=== PATIENT | female | born 1960 | race Caucasian/White ===

== ENCOUNTER 2021-08-01 05:45 | Day surgery (SDC) | payer OTHER ==
[~2021-08-01] VITALS: Ht 162.6 cm; Wt 75.0 kg
[~2021-08-01 05:45] MED LIST: ACETAMINOPHEN500 MG PO; AMARYL2 MG PO; AMARYL4 MG PO; ASPIRIN EC325 MG PO; COZAAR50 MG PO; DICLOFENAC SODI75 MG PO; GABAPENTIN300 MG PO; JANUVIA100 MG PO; JARDIANCE25 MG PO; LANTUS100 UNITS/ SUB-Q; LOSARTAN POTAS100 MG PO; METFORMIN HCL500 MG PO; OMEPRAZOLE20 MG PO; OXYCODONE HCL5 MG PO; PRAVACHOL20 MG PO; STOOL SOFTENER1 EAC4 PO; TOUJEO SOL300 UNIT/1 SUB-Q; TRULICITY0.75 MG/0.; VITAMIN D50000 UNI1 PO; ZANTAC300 MG PO
--- NOTE | 2021-08-01 06:28 | NUR ---
BLOOD SUGAR 168 AT ADMIT
--- NOTE | 2021-08-01 07:54 | NUR ---
PT ALERT, ORIENTED AND SUPPORTED BY PRIYA. PT REQUESTS PRAYER, GAVE ENCOURAGEMENT AND SUPPORT. PRIYA WILL WAIT FOR DC. WILL FOLLOW NEEDED
[2021-08-01] MEDS ORDERED: OXYCODONE HCL5 MG PO (08:00)
[2021-08-01] MEDS ORDERED: KETOROLAC TROME10 MG PO (08:00)
--- NOTE | 2021-08-01 08:01 | NUR ---
08/01/21 0801 Lay Brooke 0758- PT ARRIVES PACU NONAROUSABLE TO STIMULI. RESP EVEN AND UNLABORED. OXYGEN SAT HIGH 90'S TO 100% ON 6L VIA MASK.
--- NOTE | 2021-08-01 09:44 | NUR ---
0900 PT COMPLAINS OF LT KNEE PAIN 5/10 REPORTS IT IS NOT TOLERABLE OXYCODONE GIVEN. 929 PT REPORTS NEEDING TO VOID, SHE IS STILL DROWSY, COMMOD BROUGHT INTO ROOM SHE WAS ABLE TO VOID 500ML OF CLEAR YELLOW URINE. PT REPORTS PAIN IS MUCH BETTER /10 NOW. HELPED HER BACK INTO BED GALO HUGGER AND WARM BLANKETS GIVEN, CALL LIGHT WITH IN REACH, IS AT BEDSIDE.
--- NOTE | 2021-08-01 10:41 | NUR ---
1020 PT REPORTS READINESS TO GO HOME. IV DC'D TIP IN TACT, DISCHARGE INSTRUCTIONS GIVEN TO PT AND BOTH VOICED UNDERSTANDING.
--- NOTE | 2021-08-02 10:25 | OR ---
[facility] [address] [facility] [place], [place] [address] Signed DATE OF OPERATION: 08/01/2021 SURGEON: Jean Claude Koenig MD PREOPERATIVE DIAGNOSIS: Heterotopic ossification, left total knee. POSTOPERATIVE DIAGNOSIS: Heterotopic ossification, left total knee. PROCEDURE PERFORMED: Left knee arthroscopy with debridement. MEASUREMENT OPERATOR: None. ANESTHESIA: General. BLOOD LOSS: Minimal. TOURNIQUET TIME: Zero. BRIEF HISTORY: Rachel is a 61-year-old female with anterior knee pain and radiographs consistent with developing heterotopic ossification in the fat pad, particularly medially where her old incision was. Conservative treatment including physical therapy and bracing was ineffective. Risks and benefits of operative treatment were discussed with her and she elected to proceed. Once consent was obtained, she was taken to the operating room. After adequate anesthesia she was placed on operating table. The right leg was flexed, abducted, and externally rotated on a well-padded leg coronado. The left was placed in well-padded proximal thigh tourniquet and placed in a leg coronado. The knee was prepped and draped in a standard sterile fashion. Portal sites were injected using 0.25% Marcaine with epinephrine. The standard inferolateral and superolateral scope portals were established and the scope was introduced. ARTHROSCOPIC FINDINGS: All components were noted to be intact. There was moderate scarring throughout the Electronically Signed By: JEAN CLAUDE KOENIG MD 08/02/21 1025 PATIENT NAME: RACHEL PINEDA OPERATIVE REPORT DATE OF : 62 REPORT #: [id number] PHYSICIAN: JEAN CLAUDE KOENIG MD PCP: CHRIS PEREZ REPORT IS CONFIDENTIAL AND NOT TO BE RELEASED WITHOUT AUTHORIZATION [facility] [address] [place], [place] [address], [place] [address] Signed knee. There was extensive redness and swelling in the medial scar tissue, which is where the CT showed the heterotopic ossification to be. The PCL was not visualized. Medial and lateral gutters were clear. DESCRIPTION OF PROCEDURE: Low medial portal was established through the prior scar. Then, utilizing the shaver and Mitek vapor, we were able to remove all of the medial scar tissue that was reddened and inflamed. This extended up to the medial aspect of the patella. The bleeders were carefully cauterized using the Mitek vapor as we went. The debridement was taken down to the region of the tendon. Once this was accomplished, the inspection showed no further areas of synovitis or inflammation. The scope was withdrawn and the portals were closed with 3-0 nylon. The wound was dressed with dressing, ABD, and Bean wrap. She tolerated the procedure well. All sponge, needle, and instrument counts were correct. Jean Claude Koenig MD BA/FREDERICK /[id number] Copies: ~ Electronically Signed By: JEAN CLAUDE KOENIG MD 08/02/21 1025 PATIENT NAME: RACHEL PINEDA OPERATIVE REPORT DATE OF : 62 REPORT #: [id number] PHYSICIAN: JEAN CLAUDE KOENIG MD PCP: CHRIS PEREZ REPORT IS CONFIDENTIAL AND NOT TO BE RELEASED WITHOUT AUTHORIZATION
--- NOTE | 2021-08-02 15:57 | EKG ---
[facility] [address] [facility] [place], [place] [address] Signed Normal sinus rhythm Normal ECG No previous ECGs available Confirmed by JEANINE SMITH MD ([id number]) on 08/02/2021 3:57:33 PM Electronically Signed By: JEANINE SMITH MD 08/02/21 1557 PATIENT NAME: RACHEL PINEDA Electrocardiogram DATE OF : 62 PHYSICIAN: JEANINE SMITH MD REPORT #: [id number] REPORT IS CONFIDENTIAL AND NOT TO BE RELEASED WITHOUT AUTHORIZATION
== END 2021-08-01 10:35 | disposition home or self-care (01) ==
LOC: DS 05:45
PROVIDERS: ATTEND Specialist
PROC: 0SBD4ZZ Excision of Left Knee Joint, Percutaneous Endoscopic Approach (ICD-10-PCS; principal; 2021-08-01 06:45)
DX: M25.862 Other specified joint disorders, left knee (principal); E11.9 Type 2 diabetes mellitus without complications; I10 Essential (primary) hypertension; K21.9 Gastro-esophageal reflux disease without esophagitis; Z96.652 Presence of left artificial knee joint; Z79.4 Long term (current) use of insulin
CPT/HCPCS: 93005; 93010; J0131; J0690; J1885; J2001; J2250; J2405; J2704; J3010; J7121

== ENCOUNTER 2024-07-18 22:24 | Emergency (ER) | payer OTHER ==
[~2024-07-18] VITALS: Ht 162.6 cm; Wt 70.8 kg
[~2024-07-18 22:24] MED LIST changes: +GLIPIZIDE ER10 MG PO; +KETOROLAC TROME10 MG PO; +OSTERA TABLET1 EACH PO
[2024-07-18] MEDS ORDERED: VITAMIN D21250 MCG (22:52)
[2024-07-18] MEDS ORDERED: HYDROCODON-ACE1 EA10 (22:52)
[2024-07-18] MEDS ORDERED: CYCLOBENZAPRINE5 MG (22:52)
[2024-07-18] MEDS ORDERED: TRULICITY3 MG/0.5 M (22:52)
[2024-07-18] MEDS ORDERED: LOSARTAN POTASS50 MG (22:53)
[2024-07-18] MEDS ORDERED: predniSONE 20 MG TAB PO ONE (23:30)
[2024-07-18] MEDS ORDERED: HYDROmorphone HCL 2 MG/ML VIAL IM ONE (23:30)
[2024-07-18] MEDS ORDERED: METHYLPREDNISOLO4 M1 PO (23:45)
[2024-07-18 23:56] VITALS: BP 98/66
== END 2024-07-18 23:59 | disposition home or self-care (01) ==
LOC: ED 22:24
DX: M54.41 Lumbago with sciatica, right side (principal); I10 Essential (primary) hypertension; E11.9 Type 2 diabetes mellitus without complications; Z96.652 Presence of left artificial knee joint; Z88.5 Allergy status to narcotic agent; Z88.6 Allergy status to analgesic agent; Z91.038 Other insect allergy status; Z79.4 Long term (current) use of insulin; Z79.85 Long-term (current) use of injectable non-insulin antidiabetic drugs; Z79.84 Long term (current) use of oral hypoglycemic drugs; Z79.899 Other long term (current) drug therapy
CPT/HCPCS: 96372; 99283; J1171; J7512